=== PATIENT | male | born 1965 | race Caucasian/White ===

== ENCOUNTER 2017-01-10 19:19 | Emergency (ER) | payer OTHER, MEDICAID ==
[2017-01-10 19:42] VITALS: BP 130/73
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
--- NOTE | 2017-01-10 20:50 | RAD ---
INDICATION: Right ankle injury. TECHNIQUE: 3 views of the right ankle were obtained. FINDINGS: There is mild diffuse soft tissue swelling. The bones are in normal alignment. No acute fracture is seen. There is an old small avulsion fracture fragment arising from the dorsal talus. The patient is status post fusion of the subtalar joint. There is a single surgical screw spanning the calcaneus and talus. The joint space remains visualized. IMPRESSION: 1. SOFT TISSUE SWELLING, NO ACUTE FRACTURE IS SEEN. 2. STATUS POST FUSION OF THE SUBTALAR JOINT. THE JOINT SPACE REMAINS VISUALIZED.
--- NOTE | 2017-01-10 20:52 | RAD ---
INDICATION: Right lower leg injury. TECHNIQUE: 2 views of the right lower leg were obtained. FINDINGS: The bones are in normal alignment. No fracture is seen. Posttraumatic and post surgical changes are noted in the distal femur. The distal portion of an intramedullary gill is noted spanning a partially fused fracture of the distal femoral metaphysis. IMPRESSION: NO EVIDENCE FOR ACUTE FRACTURE.
== END 2017-01-10 21:35 | disposition home or self-care (01) ==
LOC: UCCORT 19:19
DX: S93.401A Sprain of unspecified ligament of right ankle, initial encounter (principal); X50.1XXA Overexertion from prolonged static or awkward postures, initial encounter; Y93.9 Activity, unspecified; Y92.9 Unspecified place or not applicable; E11.9 Type 2 diabetes mellitus without complications; I10 Essential (primary) hypertension; J44.9 Chronic obstructive pulmonary disease, unspecified; G43.909 Migraine, unspecified, not intractable, without status migrainosus; K21.9 Gastro-esophageal reflux disease without esophagitis; F41.9 Anxiety disorder, unspecified; Z86.711 Personal history of pulmonary embolism; F17.210 Nicotine dependence, cigarettes, uncomplicated
CPT/HCPCS: 99213; G0463

== ENCOUNTER 2017-04-07 11:29 | Emergency (ER) | payer OTHER ==
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
[2017-04-07] MEDS ORDERED: Al Hydrox/Mg Hydrox/Simet LIQ* 30 ML UDC PO ONE (11:51)
[2017-04-07] MEDS ORDERED: Lidocaine 2% VISCOUS* 15 ML UDC PO ONE (11:51)
[2017-04-07 11:55] VITALS: BP 141/63
== END 2017-04-07 12:21 | disposition left against medical advice (07) ==
LOC: UCCORT 11:29
DX: R10.13 Epigastric pain (principal); R07.89 Other chest pain; R11.2 Nausea with vomiting, unspecified; E11.9 Type 2 diabetes mellitus without complications; I10 Essential (primary) hypertension; J44.9 Chronic obstructive pulmonary disease, unspecified; F17.210 Nicotine dependence, cigarettes, uncomplicated
CPT/HCPCS: 93005; 99213; A9270-GY; G0463

== ENCOUNTER 2019-02-27 10:03 | Emergency (ER) | payer OTHER ==
[2019-02-27] MEDS ORDERED: Aspirin 81 mg CHEW TAB* 81 MG TAB.CHEW PO ONE (10:25)
[2019-02-27 10:36] VITALS: BP 156/85
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
== END 2019-02-27 10:50 | disposition short-term general hospital (02) ==
LOC: UCCORT 10:03
DX: R07.9 Chest pain, unspecified (principal); I10 Essential (primary) hypertension; I25.10 Atherosclerotic heart disease of native coronary artery without angina pectoris; J44.9 Chronic obstructive pulmonary disease, unspecified; F17.210 Nicotine dependence, cigarettes, uncomplicated; Z79.899 Other long term (current) drug therapy
CPT/HCPCS: 93005; 99214; A9270-GY; G0463

== ENCOUNTER 2019-02-28 12:44 | Observation (INO) | payer OTHER ==
--- OUTSIDE RECORDS SUMMARY | 2019-02-28 13:08 | XMS REPORT | Continuity of Care Document ---
:1965 External Reference #:[id number] Author Name Ayleen Rodriguez Care Team Providers Name Role Phone Susan Silver N.P. Primary Care Physician Unavailable Payers Date Identification Numbers Payment Provider Subscriber Policy Number: [id number] Sebastien Holcomb Group Name: [id number] [address] PayID: [id number] [place] [address] Family History Date Family Member(s) Observation Comments Mother Diabetes Mother due to CAD () Mother due to CHF () Social History Type Date Description Comments Sex Unknown Marital Status Lives With Spouse Tobacco Use Start: Unknown Heavy tobacco smoker (more than 10 cigarettes/day) Smoking Status Reviewed: 02/28/19 Heavy tobacco smoker (more than 10 cigarettes/day) ETOH Use Denies alcohol use Recreational Drug Use Denies Drug Use Tobacco Use Start: Unknown Heavy tobacco smoker (more than 10 cigarettes/day) Exercise Type/Frequency Does not exercise Allergies, Adverse Reactions, Alerts Description No Known Drug Allergies Medications Active Medications SIG Qnty Indications Ordering Date Provider Bupropion Hydrochloride 1 by mouth every day Unknown ER (XL) 300mg Tablets ER 24HR Celecoxib 1 by mouth bid Unknown 200mg Capsules Esomeprazole Magnesium 1 by mouth bid Unknown 40mg Capsules DR Fentanyl apply one patch Unknown 75mcg/HR Patches transdermally every 72HR 3 days Ferrous Sulfate 1 by mouth tid Unknown 325(65Fe) mg Tablets Gabapentin take one tablet by Unknown 600mg Tablets mouth two times daily Lisinopril 1 by mouth every day Unknown 2.5mg Tablets Metformin HCL ER (Mod) 2 po bid Unknown 500mg Tablets ER 24HR Prochlorperazine 1 po tid prn Unknown Maleate 10mg Tablets Ranitidine 300 mg at hs Unknown Simvastatin 1 by mouth every day Unknown 10mg Tablets Trazodone HCL 2 po every night at Unknown 100mg Tablets bedtime. History Medications Albuterol Sulfate 1 unit dose via Unknown - 02/27/2019 (2.5mg/3ML) nebulizer every 4 hours 0.083% Nebulizer as needed Symbicort 1 puff twice a day Unknown - 02/25/2019 160-4.5mcg/Act Aerosol Incruse Ellipta inhale one puff by Unknown - 02/27/2019 62.5mcg/Inh mouth every day Aerosol Vital Signs Date Vital Result Comment 02/28/2019 10:44am Height 71 inches 5'11" Weight 269.00 lb with shoes Heart Rate 90 /min BP Systolic Sitting 136 mmHg ule lg cuff BP Diastolic Sitting 76 mmHg ule lg cuff O2 % BldC Oximetry 95 % Ra BMI (Body Mass Index) 37.5 kg/m2 Procedures Date Code Description Status 02/28/2019 57564 EKG Tracing & Interpretation Completed Plan of Treatment 02/28/2019 - Jose Sánchez M.D.I10 Essential (primary) [id number] Hyperlipidemia, [id number] Shortness of [id number] Chest pain, unspecifiedFollow up:I strongly advised pt and to go to hospital now for further eval. I offered ambulance and he said his will drive him.Z72.0 Tobacco useE66.9 Obesity, rtaoyqxuqacE68.33 Obstructive sleep apnea (adult) (pediatric)E11.9 Type 2 diabetes mellitus without complications
[2019-02-28 13:32] LABS: ABS Basophils 0.1 10^3/ul (0-0.2); ABS Eosinophils 0.1 10^3/ul (0-0.6); ABS Lymphocytes 2.6 10^3/ul (1.0-4.8); ABS Monocytes 0.6 10^3/ul (0-0.8); ABS Neutrophils 5.3 10^3/ul (1.5-7.7); Eosinophil % 1.2 %; Hematocrit 45 % (42-52); Lymphocyte % 29.5 %; Mean Corpuscular HGB Conc 34 g/dL (31-36); Mean Corpuscular Hemoglobin 31 pg (27-31); Mean Corpuscular Volume 92 fL (80-94); Mean Platelet Volume 8.2 fL (7.4-10.4); Nucleated Red Blood Cells % 0.1; Platelet Count 217 10^3/uL (150-450); Red Blood Count 4.87 10^6 /uL (4.18-5.48); Red Cell Distribution Width 14 % (10-15); White Blood Count 8.7 10^3/uL (3.5-10.8)
[2019-02-28 13:42] LABS: INR 0.93 (0.82-1.09)
[2019-02-28 13:50] LABS: Albumin/Globulin Ratio 1.3 (1-3); BUN/Creatinine Ratio 17.8 (8-20); Calcium 9.1 mg/dL (8.6-10.3); EGFR African American 106.4 (>60); EGFR Non-African American 87.9 (>60); Globulin 3.2 g/dL (2-4); Total Bilirubin 0.2 mg/dL (0.2-1.0); Total Protein 7.2 g/dL (6.4-8.9); Troponin I 0.01 ng/mL (<0.04)
[2019-02-28 14:07] LABS: Potassium 4.6 mmol/L (3.5-5.0)
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
[2019-02-28] MEDS ORDERED: Acetaminophen TAB* 325 MG PO PRN (16:38)
[2019-02-28] MEDS ORDERED: Ondansetron INJ* 2 MG/ML VIAL IV PRN (16:38)
[2019-02-28] MEDS ORDERED: Aspirin 81 mg CHEW TAB* 81 MG TAB.CHEW PO ONE (17:02)
[2019-02-28] MEDS ORDERED: Nitro 2% OINT* (Nitroglycerin) 1 INCH/PAK PAK TOPICAL ONE (17:02)
[2019-02-28] MEDS ORDERED: Dextrose 50% Syringe 50 ML* 25 GM/50 ML SYRINGE IV PUSH PRN (17:04)
[2019-02-28] MEDS ORDERED: Albuterol 2.5 MG/3 ML NEB.SOL* (0.083%) INH PRN (17:04)
[2019-02-28] MEDS ORDERED: Prochlorperazine TAB* 10 MG PO PRN (17:05)
[2019-02-28] MEDS ORDERED: traZODone TAB* 100 MG PO PRN (17:05)
[2019-02-28] MEDS ORDERED: Nicotine* 4MG (FRUIT FLAVOR) GUM PO PRN (17:39)
[2019-02-28] MEDS ORDERED: fentaNYL PATCH 75 MCG/HR* 75 MCG TRANSDERM SCH (18:00)
[2019-02-28] MEDS: fentaNYL Patch Check Q Shift 1 NOTE FOLLOW UP SCH (18:28)
--- NOTE | 2019-02-28 18:46 | HP ---
HISTORY AND PHYSICAL: ADDENDUM: The case was reviewed and discussed with Eden Ruby NP. Mr. Holcomb is a 53-year-old male with multiple comorbidities including COPD, tobacco abuse, obesity, chronically uncontrolled type 2 diabetes, hypertension, who presented to the emergency room with nadeem hs of progressive exertional chest pain. His initial troponin is negative and his EKG shows no acute ischemic changes, but there is concern that this is high-risk chest pain, so he will be admitted for further evaluation and workup including a stress test. I am in agreement with the current management. [id number]/[facility] #: [id number]
[2019-02-28] MEDS: Insulin LISPRO* 1 UNITS UNIT SUBCUT SCH (19:20)
[2019-02-28] MEDS: Nicotine PATCH 21 MG/24 HR* PATCH TRANSDERM SCH (19:21)
[2019-02-28] MEDS: Insulin GLARGINE(*) 1 UNITS UNIT SUBCUT SCH (19:22)
[2019-02-28] MEDS: Famotidine TAB* 20 MG PO SCH (19:22)
[2019-02-28] MEDS: Gabapentin CAP(*) 300 MG PO SCH (19:23)
[2019-02-28] MEDS: Ferrous Sulfate TAB* 325 MG PO SCH (19:23)
[2019-02-28] MEDS: Pantoprazole TAB * 40 MG TAB PO SCH (19:24)
--- NOTE | 2019-02-28 20:08 | HP ---
CC: Susan Silver NP * MEDICINE HISTORY AND PHYSICAL: DATE OF ADMISSION: 02/28/19 PROVIDER: Corey Landon NP ATTENDING PHYSICIAN: María Montemayor MD * (dictated by Corey Landon NP) PRIMARY CARE PROVIDER: Susan Silver NP OUTPATIENT AUTOMATIC LATHE OPERATOR: Dr. Sánchez. CHIEF COMPLAINT: Chest pain. HISTORY OF PRESENT ILLNESS: Mr. Holcomb is a 53-year-old male who was sent to the ER today by Dr. Sánchez. The patient was seen by Dr. Sánchez for his initial cardiology consult after reporting chest pain that has been occurring intermittently for the past couple of months. On morning, Mr. Holcomb complained of chest pain and his , Mallory, who has accompanied the patient, states that she made him go to the [facility] for further evaluation at this point. He was seen at [facility] and then referred to the ER. He was then transferred to [facility] where he was seen and evaluated for his left-sided chest pain. Per the patient, he was discharged. Per his , they had wanted to admit him for a stress test, but the patient declined at that time. This morning, he awoke; he states that he did have some chest pain at rest, but did not tell anyone. He went to his cardiology appointment and at the cardiology appointment with presentation of his symptoms, he was referred to the [facility] for further evaluation and admission for stress test due to the high risk symptoms he has. Mr. Holcomb reports that it currently feels like someone is sitting on his chest. He reports heaviness in the left side that occurs both at rest and with exertion. It worsens with exertion. He also reports some right arm pain, particularly in the right shoulder. Aggravating factors are exertion. Pain does improve with rest, but does not completely go away. He reports associated symptoms of headache, diaphoresis, which actually have improved. He has chronic nausea at baseline. This has not worsened. Per his , his EKG at his PCP's office also showed an irregular rhythm. Mr. Holcomb also states that he has type 2 diabetes that is not well controlled. He states he does check his blood sugars at home and they usually range in the 200s or higher. His blood sugar was 327 today. He states this has been ongoing for the past couple of months, and his PCP recently increased his metformin to 1000 mg twice a day. He feels this has been insufficient. He also reports a history of tobacco use and COPD. He does not utilize any inhalers. He has also been diagnosed previously with obstructive sleep apnea but states that he did not tolerate the CPAP machine and does not feel he needs oxygen at nighttime because his "breathing is fine." In the ER, Mr. Holcomb has had troponins drawn with his first troponin being 0.01 and next troponin is 0.00. EKG was done upon arrival and it showed normal sinus rhythm, no significant ST or T wave inversions to indicate ischemic changes. However, given his symptoms, Dr. Sánchez was consulted via the phone and he had recommended the patient be admitted for cardiac workup, which includes stress test. Mr. Holcomb is in agreement with this plan. PAST MEDICAL HISTORY: Includes: 1. COPD. 2. Type 2 diabetes, on metformin. 3. Hypertension. 4. Hyperlipidemia. 5. Obstructive sleep apnea, not on CPAP or home oxygen. 6. Anemia. 7. Depression. 8. Anxiety. 9. Chronic back pain. 10. BPH. 11. GERD. MEDICATIONS: Home medications: 1. Gabapentin 300 mg b.i.d. 2. Trazodone 200 mg at bedtime p.r.n. 3. Metformin 1000 mg b.i.d. 4. Simvastatin 10 mg daily. 5. Ranitidine 300 mg at bedtime. 6. Prochlorperazine 10 mg t.i.d. p.r.n. 7. Lisinopril 2.5 mg daily. 8. Fentanyl patch 75 mcg q.72 hours. 9. Ferrous sulfate 325 mg t.i.d. 10. Celecoxib 200 mg b.i.d. 11. Esomeprazole 40 mg b.i.d. ALLERGIES: No known allergies. FAMILY HISTORY: He reports a father who of small cell lung cancer. His mother is ; she had a history of coronary artery disease, diabetes, and congestive heart failure. SOCIAL HISTORY: Mr. Holcomb is a current every day smoker. He has been smoking for 33 years and smokes approximately 1 pack per day. He denies alcohol or illicit drug use. He is not currently working due to his chronic pain. He is . His , Mallory, is his surrogate decision maker in the event of emergency. His son, Irving, would be his secondary contact. REVIEW OF SYSTEMS: A 12-point review of systems was completed. All pertinent positives and negatives as per HPI, all those not mentioned are negative. PHYSICAL EXAMINATION GENERAL: This is a middle-aged male, seen lying in the ED stretcher, in no acute distress. VITAL SIGNS: Temperature 97.3, heart rate 92, respiratory rate 20, blood pressure 127/85, and O2 saturation is 98% on room air. HEENT: Head is atraumatic, normocephalic. Face is symmetric. Pupils are equal , round and reactive to light and accommodation. Extraocular movements are intact. Oral mucosa is moist. No oropharyngeal erythema or exudate. NECK: Supple with full range of motion. No JVD noted. No carotid bruits auscultated. No lymphadenopathy appreciated. LUNGS: Clear to auscultation, but diminished throughout. I do hear scattered expiratory wheezes with prolonged expiratory phase. CARDIAC: Normal S1, S2. Heart sounds with regular rate and rhythm. No murmurs appreciated. Peripheral pulses are present in the upper and lower extremities. No peripheral edema noted. ABDOMEN: Soft, nontender, somewhat protuberant. Bowel sounds are present in all 4 quadrants. MUSCULOSKELETAL: There is no clubbing or cyanosis. Full range of motion is noted in all 4 extremities. NEURO: He is alert and oriented x3. Cranial nerves II through XII are grossly intact. Sensation is intact to light touch to the lower extremities. Speech is fluent. He is able to make needs known. PSYCHIATRIC: Affect is appropriate. SKIN: Appears grossly intact. It is warm and dry. Evidence of old healed incisions to the lower back and to the right lower leg. DIAGNOSTIC STUDIES/LAB DATA: CBC, WBC 8.7, hemoglobin 15.0, hematocrit 45, platelet count 217. INR 0.93. CMP, sodium 137, potassium 4.6, chloride 102, carbon dioxide 27, BUN 15, creatinine 0.90, glucose 332. Calcium 9.1. Total bilirubin 0.2, AST 24, ALT 34, alk phos 118. Troponin 0.01 at 1307 and 0.00 at 1553. Albumin 4.0. Chest x-ray was done. It shows hyperinflation of the lungs, but no evidence for acute or active cardiopulmonary disease. EKG as per above. Old medical records were reviewed. ASSESSMENT AND PLAN: This is a 53-year-old male here today with concern for chest pain with multiple comorbidities and was concerned for escalation of symptoms to even being present at rest. He will be admitted as an inpatient with a plan for stress test on Sunday. 1. Chest pain. Rule out acute coronary syndrome. Mr. Holcomb will be admitted to [address] [place] [address] and will be monitored on the unit. He will have repeat EKGs. We will also obtain a fasting lipid profile and add on a hemoglobin A1c. He is currently with chest pain and he has been started on nitro ointment to the chest. I have also given him aspirin. He is already on JANY inhibitor. We will hold on starting the beta-alfie at this time. This may also be warranted. We discussed his risk factors including tobacco use, uncontrolled diabetes, and sleep apnea. His IAM score is 2 scoring for risk factors and 2 cardiac episodes of angina. At this point in time, we will continue plan as outlined per above and adjust as needed per the patient's presentation and symptoms. 2. Type 2 diabetes. Mr. Holcomb appears to be uncontrolled, diabetic, only on metformin and likely needs additional medications. He may benefit from additional medications such as sitagliptin. He is hoping to see Dr. Medel as an outpatient and since he will be here until Sunday, it may be possible to get a diabetes consult as an inpatient or receive recommendations from Dr. Medel prior to the patient's discharge. We will see the possibility of this on Sunday prior to the patient's discharge. In the interim, we will hold his metformin while he is inpatient and start him on lispro sliding scale insulin and start him also on Lantus, which he may need to go home on and we will start low-dose 10 units q.24 hours. Hemoglobin A1c has been added on to his labs in the ER and is pending. 3. Hypertension. Blood pressures have been rather labile. We will continue him on his home lisinopril 2.5 mg. This may need to be titrated upward. He may also benefit from the addition of a beta-alfie, but we will hold on this for now given that he has a stress test coming up. 4. Hyperlipidemia. He is on low-dose simvastatin. We will add fasting lipid profile to be drawn tomorrow. 5. Obstructive sleep apnea. He is not compliant with CPAP and oxygen. He apparently does have oxygen at home. We will obtain an overnight pulse oximetry to evaluate the extent of his hypoxia at nighttime to see if he would still benefit from a treatment modality at nighttime. Education was provided on the importance of treating sleep apnea and how it relates to cardiac condition and the overall health. 6. Chronic obstructive pulmonary disease. He may have been on inhalers at one point, but he states he no longer takes any inhalers; he does not need them. Again, he does have some scant expiratory wheezing. He is ordered p.r.n. albuterol if this should be needed. 7. Nicotine dependence. He is ordered for nicotine replacement. I did advise the patient to stop smoking and approximately 3 to 10 minutes were spent in counseling the patient on his tobacco use and the importance of cessation. 8. Depression and anxiety. The patient reports this is well controlled. He no longer takes medications for this. He was previously on Wellbutrin, but states he does not take this. 9. Chronic pain. He does follow with Dr. Brian here at the [facility]. He has a dorsal column stimulator as well as a fentanyl patch. He is also on celecoxib, which we will hold in the presence of acute chest pain and hypertension. We will continue him on his gabapentin. We will also continue his fentanyl patch. 10. History of GERD. Continue current regimen, which includes ranitidine and esomeprazole. 11. History of anemia. Continue ferrous sulfate. CBC is within normal limits. 12. FEN. He is ordered consistent carbohydrate diabetic diet, no caffeine. 13. Code status. He is a full code. 14. DVT prophylaxis. He is ordered subcu heparin. 15. Disposition. Anticipate discharge to home when medically stable. TIME SPENT: Approximately 65 minutes were spent on this admission, which includes obtaining history and physical, performing the physical examination, and reviewing the plan of care. Plan of care was also reviewed with my attending , Dr. Montemayor, who is in agreement. COREY LANDON NP [id number]/[facility] #: [id number] [place]
[2019-02-28] MEDS: Heparin VIAL(*) 5000 UNITS/ML VIAL (FIVE THOUSAND) SUBCUT SCH (22:19)
[2019-03-01] MEDS ORDERED: Ketorolac INJ* 15 MG/ML 1 ML VIAL IV PUSH ONE (00:20)
[2019-03-01] MEDS: Heparin VIAL(*) 5000 UNITS/ML VIAL (FIVE THOUSAND) SUBCUT SCH ×3 (05:21→21:35)
[2019-03-01] MEDS: Nicotine Patch Removal NOTE FOLLOW UP SCH (05:22)
[2019-03-01 07:01] LABS: HDL Cholesterol 27.9 mg/dL
[2019-03-01] MEDS: fentaNYL Patch Check Q Shift 1 NOTE FOLLOW UP SCH ×2 (07:48→19:52)
[2019-03-01] MEDS: Ferrous Sulfate TAB* 325 MG PO SCH ×3 (07:52→19:55)
[2019-03-01] MEDS: Nicotine PATCH 21 MG/24 HR* PATCH TRANSDERM SCH (07:52)
[2019-03-01] MEDS: Insulin LISPRO* 1 UNITS UNIT SUBCUT SCH ×3 (07:54→17:17)
[2019-03-01] MEDS: Pantoprazole TAB * 40 MG TAB PO SCH ×2 (07:55→19:56)
[2019-03-01] MEDS: Lisinopril TAB* 5 MG PO SCH (07:55)
[2019-03-01] MEDS: Aspirin 81 mg CHEW TAB* 81 MG TAB.CHEW PO SCH (07:55)
[2019-03-01] MEDS: Gabapentin CAP(*) 300 MG PO SCH ×2 (07:55→19:55)
[2019-03-01] MEDS ORDERED: CMCS:Simvastatin TAB(NF) 10 MG TAB PO SCH (09:00)
[2019-03-01] MEDS: Metoprolol Tartrate TAB* 25 MG PO SCH ×3 (11:02→22:14)
[2019-03-01] MEDS: Nitro 2% OINT* (Nitroglycerin) 1 INCH/PAK PAK TOPICAL SCH (12:38)
--- NOTE | 2019-03-01 12:52 | PN ---
Subjective Date of Service: 03/01/19 Interval History: chest pressure 2/10 currently, 5/10 at worst. for 2 months, worse with exertion 4 pillow orthopnea for ~6months, at same time Abdomen has felt more bloated and distended. sharp stabbing pain down right arm into hand for 1 month. this is why he says he sought (or forced) seek evaluation. Wants to establish with new PCP. Says he has not interest in quitting smoking. His also smokes. Objective Active Medications: Acetaminophen (Tylenol Tab*) 650 mg PO Q4H PRN PRN Reason: FEVER/PAIN Albuterol (Ventolin 2.5 Mg/3 Ml Neb.Jennie*) 2.5 mg INH Q4H PRN PRN Reason: SOB/WHEEZING Last Admin: 03/01/19 00:21 Dose: 2.5 mg Aspirin (Aspirin 81 Mg Chew Tab*) 81 mg PO DAILY [facility] Last Admin: 03/01/19 07:55 Dose: 81 mg Atorvastatin Calcium (Lipitor*) 80 mg PO 1700 [facility] Dextrose (D50w Syringe 50 Ml*) 12.5 gm IV PUSH .FOR FS < 60 - SS PRN PRN Reason: FS < 60 Famotidine (Pepcid Tab*) 40 mg PO BEDTIME [facility]; Protocol Last Admin: 02/28/19 19:22 Dose: 40 mg Fentanyl (Duragesic Patch 75 Mcg/Hr*) 75 mcg TRANSDERM Q72H [facility] Last Admin: 02/28/19 17:51 Dose: Not Given Ferrous Sulfate (Ferrous Sulfate Tab*) 325 mg PO TID [facility] Last Admin: 03/01/19 12:41 Dose: 325 mg Gabapentin (Neurontin Cap(*)) 300 mg PO BID [facility] Last Admin: 03/01/19 07:55 Dose: 300 mg Heparin Sodium (Porcine) (Heparin Vial(*)) 5,000 units SUBCUT Q8HR [facility] Last Admin: 03/01/19 05:21 Dose: 5,000 units Insulin Glargine (Lantus(*)) 10 units SUBCUT Q24H [facility] Last Admin: 02/28/19 19:22 Dose: 10 unit Insulin Human Lispro (Humalog*) 0 units SUBCUT AC [facility]; Protocol Last Admin: 03/01/19 12:42 Dose: 12 unit Lisinopril (Prinivil Tab*) 2.5 mg PO DAILY [facility] Last Admin: 03/01/19 07:55 Dose: 2.5 mg Metoprolol Tartrate (Lopressor Tab*) 25 mg PO Q6H [facility] Last Admin: 03/01/19 11:02 Dose: 25 mg Nicotine (Nicotine Patch 21 Mg/24 Hr*) 1 patch TRANSDERM DAILY@0800 [facility] Last Admin: 03/01/19 07:52 Dose: 1 patch Nicotine Polacrilex (Nicotine Gum*) 4 mg PO Q2H PRN PRN Reason: CRAVING Nitroglycerin (Nitroglycerin 2% Oint*) 1 inch TOPICAL 0600,1200 [facility]; Protocol Last Admin: 03/01/19 12:38 Dose: 1 inch Ondansetron HCl (Zofran Inj*) 4 mg IV Q6H PRN PRN Reason: NAUSEA/VOMITING Pantoprazole Sodium (Protonix Tab*) 40 mg PO BID [facility]; Protocol Last Admin: 03/01/19 07:55 Dose: 40 mg Pharmacy Profile Note (Fentanyl Patch Check Q Shift) 1 note FOLLOW UP 0700, 1900 [facility] Last Admin: 03/01/19 07:48 Dose: 1 note Pharmacy Profile Note (Nicotine Patch Removal Note*) 1 note FOLLOW UP 0600 [facility] Last Admin: 03/01/19 05:22 Dose: 1 note Prochlorperazine (Compazine Tab*) 10 mg PO TID PRN PRN Reason: NAUSEA/VOMITING Trazodone HCl (Desyrel Tab*) 200 mg PO BEDTIME PRN PRN Reason: INSOMNIA Vital Signs - 8 hr 03/01/19 03/01/19 03/01/19 06:05 07:35 07:55 Temperature 97.5 F Pulse Rate 69 Respiratory 20 18 Rate Blood Pressure 148/78 (mmHg) O2 Sat by Pulse 92 95 Oximetry 03/01/19 03/01/19 03/01/19 09:19 09:59 11:20 Temperature 97.6 F Pulse Rate 71 Respiratory 16 16 20 Rate Blood Pressure 132/77 (mmHg) O2 Sat by Pulse 95 Oximetry Oxygen Devices in Use Now: None Appearance: NAD, sitting on side of hospital bed. Eyes: No Scleral Icterus Ears/Nose/Mouth/Throat: NL Teeth, Lips, Gums Neck: NL Appearance and Movements; NL JVP Respiratory: Symmetrical Chest Expansion and Respiratory Effort, Clear to Auscultation Cardiovascular: NL Sounds; No Murmurs; No JVD, RRR Abdominal: NL Sounds; No Tenderness; No Distention, - - obese Extremities: No Edema Skin: No Rash or Ulcers Neurological: Alert and Oriented x 3 Nutrition: Taking PO's Result Diagrams: 02/28/19 13:07 02/28/19 13:07 Additional Lab and Data: Laboratory Results - last 24 hr 02/28/19 03/01/19 03/01/19 13:07 06:05 07:29 POC Glucose (mg/dL) 147 H Glucose Meter Confirm B-Natriuretic Peptide 20 Triglycerides 355 Cholesterol 137 LDL Cholesterol 38 HDL Cholesterol 27.9 03/01/19 03/01/19 03/01/19 11:55 16:24 20:01 POC Glucose (mg/dL) 170 H 196 H Glucose Meter Confirm 310 H B-Natriuretic Peptide Triglycerides Cholesterol LDL Cholesterol HDL Cholesterol Assess/Plan/Problems-Billing Assessment: 53 yo male [facility] current smoker, NIDDM (poorly controlled), obesity, CHAYA, chronic back pain (on 75mcg fentanyl, dorsal column stimulator) presenting with 3 months of DUFF, chest and 1 month of stabbing pain in right arm. Needing stress test - Patient Problems (1) Chest pain Current Visit: Yes Status: Acute Code(s): R07.9 - CHEST PAIN, UNSPECIFIED SNOMED Code(s): 45115029 Comment: Referred by Dr. Oliver. Needing stress teat on 03/03. Troponins negative, no ischemic changes on EKG add beta-alfie metoprolol 25mg q6. change to atorvastatin 80mg. add back nitro paste. telemetry. ECHO. (2) Diabetes mellitus type 2 in obese Current Visit: Yes Status: Acute Code(s): E11.69 - TYPE 2 DIABETES MELLITUS WITH OTHER SPECIFIED COMPLICATION; E66.9 - OBESITY, UNSPECIFIED SNOMED Code(s) : 84471269 Comment: BS as high as 300 again today. Increase lantus from 10U pm to 10U BID for quicker titration. [facility] qachs. Dr. Medel was consulted by admitting providers. at home was on metformin 850 BID. (3) Hypertension Current Visit: Yes Status: Acute Code(s): I10 - ESSENTIAL (PRIMARY) HYPERTENSION SNOMED Code(s): 81434126 Comment: continue home lisinopril 2.5mg, add BB (4) Chronic back pain Current Visit: Yes Status: Acute Code(s): M54.9 - DORSALGIA, UNSPECIFIED; G89.29 - OTHER CHRONIC PAIN SNOMED Code(s): 554610111 Comment: is on fentanyl patch 75mcg and with dorsal column stimultor. (5) Right arm pain Current Visit: Yes Status: Acute Code(s): M79.601 - PAIN IN RIGHT ARM SNOMED Code(s): 116510043 Comment: stabbing pain, atypical if aginal equivalent. add b12 (6) Current smoker Current Visit: Yes Status: Acute Code(s): F17.200 - NICOTINE DEPENDENCE, UNSPECIFIED, UNCOMPLICATED SNOMED Code(s): 61690063 Comment: nicotine patch here. continues to have no desire to quit. (7) DVT prophylaxis Current Visit: Yes Status: Acute Code(s): Z29.9 - ENCOUNTER FOR PROPHYLACTIC MEASURES, UNSPECIFIED SNOMED Code(s): 963102098 Comment: heparin 5000 TID Status and Disposition: medicine inpatient, needing stress test
[2019-03-01] MEDS: Atorvastatin* 80 MG TAB PO SCH (17:17)
[2019-03-01] MEDS: Famotidine TAB* 20 MG PO SCH (19:54)
[2019-03-01] MEDS: Insulin GLARGINE(*) 1 UNITS UNIT SUBCUT SCH (21:34)
[2019-03-02 05:38] LABS: BUN/Creatinine Ratio 18.4 (8-20); Calcium 8.8 mg/dL (8.6-10.3); EGFR African American 96.4 (>60); EGFR Non-African American 79.7 (>60); Potassium 4.2 mmol/L (3.5-5.0)
[2019-03-02] MEDS: Metoprolol Tartrate TAB* 25 MG PO SCH ×2 (06:21→10:52)
[2019-03-02] MEDS: Heparin VIAL(*) 5000 UNITS/ML VIAL (FIVE THOUSAND) SUBCUT SCH ×3 (06:21→20:01)
[2019-03-02] MEDS: Nicotine Patch Removal NOTE FOLLOW UP SCH (06:22)
[2019-03-02] MEDS: Nitro 2% OINT* (Nitroglycerin) 1 INCH/PAK PAK TOPICAL SCH ×2 (06:41→13:41)
[2019-03-02] MEDS: fentaNYL Patch Check Q Shift 1 NOTE FOLLOW UP SCH ×2 (06:55→19:18)
[2019-03-02] MEDS: Insulin LISPRO* 1 UNITS UNIT SUBCUT SCH ×3 (10:43→17:19)
[2019-03-02] MEDS: Lisinopril TAB* 5 MG PO SCH (10:50)
[2019-03-02] MEDS: Ferrous Sulfate TAB* 325 MG PO SCH ×3 (10:51→20:00)
[2019-03-02] MEDS: Gabapentin CAP(*) 300 MG PO SCH ×2 (10:52→20:00)
[2019-03-02] MEDS: Pantoprazole TAB * 40 MG TAB PO SCH ×2 (10:52→20:00)
[2019-03-02] MEDS: Insulin GLARGINE(*) 1 UNITS UNIT SUBCUT SCH ×2 (10:52→21:39)
[2019-03-02] MEDS: Aspirin 81 mg CHEW TAB* 81 MG TAB.CHEW PO SCH (10:52)
[2019-03-02] MEDS: Nicotine PATCH 21 MG/24 HR* PATCH TRANSDERM SCH (10:53)
--- NOTE | 2019-03-02 12:02 | PN ---
Subjective Date of Service: 03/02/19 Interval History: No acute events overnight, afebrile. NSR on tele His chest pain and stabbing right arm pain have resolved. Yesterday he noticed a grabbing discomfort and out-pouching in his ventral abdomen. Had never noticed before. no f/c/n/v/d/c. His sleep study was about 4 years ago. Does not sleep well at home. Did not tolerate CPAP previously. PFTs and outpatient pulmonary evaluation was with "Dr. Plummer or Arley " circa April 2018 in [place]. Likely [facility]ibay. Objective Active Medications: Acetaminophen (Tylenol Tab*) 650 mg PO Q4H PRN PRN Reason: FEVER/PAIN Albuterol (Ventolin 2.5 Mg/3 Ml Neb.Jennie*) 2.5 mg INH Q4H PRN PRN Reason: SOB/WHEEZING Last Admin: 03/01/19 00:21 Dose: 2.5 mg Aspirin (Aspirin 81 Mg Chew Tab*) 81 mg PO DAILY [facility] Last Admin: 03/02/19 10:52 Dose: 81 mg Atorvastatin Calcium (Lipitor*) 80 mg PO 1700 [facility] Last Admin: 03/01/19 17:17 Dose: 80 mg Dextrose (D50w Syringe 50 Ml*) 12.5 gm IV PUSH .FOR FS < 60 - SS PRN PRN Reason: FS < 60 Famotidine (Pepcid Tab*) 40 mg PO BEDTIME [facility]; Protocol Last Admin: 03/01/19 19:54 Dose: 40 mg Fentanyl (Duragesic Patch 75 Mcg/Hr*) 75 mcg TRANSDERM Q72H [facility] Last Admin: 02/28/19 17:51 Dose: Not Given Ferrous Sulfate (Ferrous Sulfate Tab*) 325 mg PO TID [facility] Last Admin: 03/02/19 10:51 Dose: 325 mg Gabapentin (Neurontin Cap(*)) 300 mg PO BID [facility] Last Admin: 03/02/19 10:52 Dose: 300 mg Heparin Sodium (Porcine) (Heparin Vial(*)) 5,000 units SUBCUT Q8HR [facility] Last Admin: 03/02/19 06:21 Dose: 5,000 units Insulin Glargine (Lantus(*)) 10 units SUBCUT Q12H [facility] Last Admin: 03/02/19 10:52 Dose: 10 units Insulin Human Lispro (Humalog*) 0 units SUBCUT [facility]; Protocol Last Admin: 03/02/19 10:43 Dose: Not Given Lisinopril (Prinivil Tab*) 2.5 mg PO DAILY [facility] Last Admin: 03/02/19 10:50 Dose: 2.5 mg Metoprolol Tartrate (Lopressor Tab*) 25 mg PO Q6H [facility] Last Admin: 03/02/19 10:52 Dose: 25 mg Nicotine (Nicotine Patch 21 Mg/24 Hr*) 1 patch TRANSDERM DAILY@0800 [facility] Last Admin: 03/02/19 10:53 Dose: 1 patch Nicotine Polacrilex (Nicotine Gum*) 4 mg PO Q2H PRN PRN Reason: CRAVING Nitroglycerin (Nitroglycerin 2% Oint*) 1 inch TOPICAL 0600,1200 [facility]; Protocol Last Admin: 03/02/19 06:41 Dose: 1 inch Ondansetron HCl (Zofran Inj*) 4 mg IV Q6H PRN PRN Reason: NAUSEA/VOMITING Pantoprazole Sodium (Protonix Tab*) 40 mg PO BID [facility]; Protocol Last Admin: 03/02/19 10:52 Dose: 40 mg Pharmacy Profile Note (Fentanyl Patch Check Q Shift) 1 note FOLLOW UP 0700, 1900 [facility] Last Admin: 03/02/19 06:55 Dose: 1 note Pharmacy Profile Note (Nicotine Patch Removal Note*) 1 note FOLLOW UP 0600 [facility] Last Admin: 03/02/19 06:22 Dose: 1 note Prochlorperazine (Compazine Tab*) 10 mg PO TID PRN PRN Reason: NAUSEA/VOMITING Trazodone HCl (Desyrel Tab*) 200 mg PO BEDTIME PRN PRN Reason: INSOMNIA Vital Signs - 8 hr 03/02/19 03/02/19 07:18 10:52 Temperature 97.7 F Pulse Rate 66 Respiratory 16 16 Rate Blood Pressure 141/73 (mmHg) O2 Sat by Pulse 96 Oximetry Oxygen Devices in Use Now: None Appearance: NAD Eyes: No Scleral Icterus Ears/Nose/Mouth/Throat: NL Teeth, Lips, Gums Neck: NL Appearance and Movements; NL JVP Respiratory: Symmetrical Chest Expansion and Respiratory Effort, - - referred upper airway obstruction wheeze Cardiovascular: NL Sounds; No Murmurs; No JVD, RRR Abdominal: - - soft, nontender, obese with ventral hernia. Extremities: No Edema Skin: No Rash or Ulcers, No Nodules or Sclerosis Neurological: Alert and Oriented x 3, NL Muscle Strength and Tone Nutrition: Taking PO's Result Diagrams: 02/28/19 13:07 03/02/19 04:58 Additional Lab and Data: Laboratory Results - last 24 hr 02/28/19 03/01/19 03/01/19 13:07 11:55 16:24 Sodium Potassium Chloride Carbon Dioxide Anion Gap BUN Creatinine Est GFR ( Amer) Est GFR (Non-Af Amer) BUN/Creatinine Ratio Glucose POC Glucose (mg/dL) 170 H Glucose Meter Confirm 310 H Calcium B-Natriuretic Peptide 20 03/01/19 03/02/19 03/02/19 20:01 04:58 07:42 Sodium 137 Potassium 4.2 Chloride 103 Carbon Dioxide 27 Anion Gap 7 BUN 18 Creatinine 0.98 Est GFR ( Amer) 96.4 Est GFR (Non-Af Amer) 79.7 BUN/Creatinine Ratio 18.4 Glucose 190 H POC Glucose (mg/dL) 196 H 120 H Glucose Meter Confirm Calcium 8.8 B-Natriuretic Peptide Assess/Plan/Problems-Billing Assessment: 53 yo male [facility] current smoker, NIDDM (poorly controlled), obesity, CHAYA, chronic back pain (on 75mcg fentanyl, dorsal column stimulator) presenting with 3 months of DUFF, chest pain and 1 month of stabbing pain in right arm. Needing stress test (referred by Dr. Sánchez) - Patient Problems (1) Chest pain Current Visit: Yes Status: Acute Code(s): R07.9 - CHEST PAIN, UNSPECIFIED SNOMED Code(s): 02796947 Comment: Referred by Dr. Oliver. Needing stress test on 03/03. Troponins negative, no ischemic changes on EKG. continue beta-alfie but change metoprolol tartrate 25mg q6 to metoprolol succinate 50mg daily. continue atorvastatin 80mg (from simvastatin home 10mg) will trial off nitro paste telemetry. NSR ECHO (unfortunately did not make the cut for today) (2) Diabetes mellitus type 2 in obese Current Visit: Yes Status: Acute Code(s): E11.69 - TYPE 2 DIABETES MELLITUS WITH OTHER SPECIFIED COMPLICATION; E66.9 - OBESITY, UNSPECIFIED SNOMED Code(s) : 54993881 Comment: BSs 120-190s Continue Lantus 10U BID for now for quicker titration. [facility] qachs. Dr. Medel was consulted by admitting providers. at home was on metformin 1000 BID. A1C 9.4 (3) Hypertension Current Visit: Yes Status: Acute Code(s): I10 - ESSENTIAL (PRIMARY) HYPERTENSION SNOMED Code(s): 93255034 Comment: continue home lisinopril 2.5mg change BB to metoprolol succinate 50mg daily (4) Chronic back pain Current Visit: Yes Status: Acute Code(s): M54.9 - DORSALGIA, UNSPECIFIED; G89.29 - OTHER CHRONIC PAIN SNOMED Code(s): 092758438 Comment: is on fentanyl patch 75mcg and with dorsal column stimultor. (5) Right arm pain Current Visit: Yes Status: Acute Code(s): M79.601 - PAIN IN RIGHT ARM SNOMED Code(s): 929857420 Comment: stabbing pain, atypical if aginal equivalent. resolved f/u b12 (6) Current smoker Current Visit: Yes Status: Acute Code(s): F17.200 - NICOTINE DEPENDENCE, UNSPECIFIED, UNCOMPLICATED SNOMED Code(s): 66266755 Comment: nicotine patch here. continues to have no desire to quit. (7) DVT prophylaxis Current Visit: Yes Status: Acute Code(s): Z29.9 - ENCOUNTER FOR PROPHYLACTIC MEASURES, UNSPECIFIED SNOMED Code(s): 943203042 Comment: heparin 5000 TID (8) Ventral hernia without obstruction or gangrene Current Visit: Yes Status: Acute Code(s): K43.9 - VENTRAL HERNIA WITHOUT OBSTRUCTION OR GANGRENE SNOMED Code(s): 080694063 Comment: f/u as outpatient. no e/o of incarceration Status and Disposition: medicine inpatient, needing stress test 03/03 then wants NEW PCP.
[2019-03-02] MEDS ORDERED: Metoprolol Succinate XL TAB* 50 MG PO SCH (17:00)
[2019-03-02] MEDS: Atorvastatin* 80 MG TAB PO SCH (17:27)
[2019-03-02] MEDS: Famotidine TAB* 20 MG PO SCH (20:00)
[2019-03-03] MEDS: Nicotine Patch Removal NOTE FOLLOW UP SCH (05:29)
[2019-03-03] MEDS: Heparin VIAL(*) 5000 UNITS/ML VIAL (FIVE THOUSAND) SUBCUT SCH (05:29)
[2019-03-03] MEDS: fentaNYL Patch Check Q Shift 1 NOTE FOLLOW UP SCH (07:11)
[2019-03-03 08:55] VITALS: BP 132/62
--- NOTE | 2019-03-03 10:17 | ECHO ---
*[facility]* [place] [address] Fax #: [phone] Transthoracic Echocardiogram Patient: Zhang, Height: 71 in / Shun Stewart 180.3 cm : 1965 Weight: 269.4 lb / Study Date: 03/03/2019 122.5 kg Age: 53 BP: 152 / 94 Gender: M BMI/BSA: 37.7 kg/m^2 HR: 55 bpm / 2.4 m^2 *Bulwark Carpenter: * Thania Morris RUST *Referring Physician: * Ian Unger *Reading Physician: * Guerrero Howard MD Indications: Chest Pain, unspecified. SOB. History: Chronic obstructive pulmonary disease. Risk factors: Current tobacco use. Hypertension. Diabetes mellitus. Obese. Conclusions Summary: 1. Left ventricle: There is mild concentric hypertrophy. Systolic function is normal. The estimated ejection fraction is 55-60%. Wall motion is normal; there are no regional wall motion abnormalities. 2. Mitral valve: There is trace regurgitation. 3. Aortic valve: There is trace regurgitation. 4. Tricuspid valve: There is physiologic regurgitation. 5. Pericardium, extracardiac: There is no significant pericardial effusion. Study data: Transthoracic echocardiogram. Procedure: Transthoracic echocardiography was performed. Image quality was fair. Complete 2D, spectral Doppler, and color flow Doppler. Location: Bedside. Patient status: Inpatient. Patient room number: 453. Rhythm: Bradycardia. Findings Left ventricle: The cavity size is at the upper limits of normal. There is mild concentric hypertrophy. Systolic function is normal. The estimated ejection fraction is 55-60%. Wall motion is normal; there are no regional wall motion abnormalities. Doppler parameters are consistent with abnormal left ventricular relaxation (grade 1 diastolic dysfunction). Right ventricle: The cavity size is moderately dilated. The moderator band is in a normal position. Systolic function is low normal. Systolic pressure cannot be accurately determined, but appears to be increased. Left atrium: The atrium is normal in size. Right atrium: The atrium is mildly dilated. Mitral valve: The leaflets are mildly thickened. There is no evidence of stenosis. There is trace regurgitation. Aortic valve: The valve is trileaflet. The leaflets are mildly thickened. There is no evidence of stenosis. There is trace regurgitation. Tricuspid valve: The leaflets are normal thickness. There is no evidence of stenosis. There is physiologic regurgitation. Pulmonic valve: The leaflets are normal thickness. There is no evidence of stenosis. There is trivial regurgitation. Aorta: Ascending aorta: The ascending aorta is appears normal. Aortic arch: The aortic arch is poorly visualized. The aortic root is not dilated. Pericardium: A prominent pericardial fat pad is present. There is no significant pericardial effusion. Pulmonary arteries: The main pulmonary artery is normal-sized. Systolic pressure cannot be accurately determined, but appears to be increased. Systemic veins: Not visualized. Measurements Left ventricle Value Ref Right atrium Value Ref NO, LAX 5.8 cm 4.2 - 5.8 SI dim, ES (H) 5.4 cm 3.4 - 5.3 ESD, LAX (H) 4.3 cm 2.5 - 4.0 ML dim, ES, A4C 4.4 cm 2.6 - 4.4 FS, LAX 26 % 25 - 43 SI dim, ES, A4C (H) 5.4 cm 3.4 - 5.3 PW, ED, LAX (H) 1.2 cm 0.6 - 1.0 Estimated RAP 8 mm Hg --------- FS 26 % 25 - 43 PW, ED (H) 1.2 cm 0.6 - 1.0 Aortic valve Value Ref E', lat javi, TDI (L) 7.4 cm/sec >=10.0 Javi diam, ED 2.0 cm ---- ----- E/e', lat javi, 8 Peak v, S 1.29 m/sec ------- -- TDI VTI, S 23.2 cm --------- E', med javi, TDI 7.0 cm/sec >=7.0 Mean grad, S 3.0 mm Hg ---- ----- E/e', med javi, 9 Peak grad, S 7.0 mm Hg ------- -- TDI LVOT/AV, VTI ratio 0.82 --------- E', avg, TDI 7.2 cm/sec AMADA, VTI 2.57 cm^2 ------- -- E/e', avg, TDI 9 <=14 AMADA, Vmax 2.58 cm^2 ---- ----- LVOT Value Ref Mitral valve Value Ref Diam, S 2.00 cm Peak E 0.63 m/sec --------- Area 3.1 cm^2 Peak A 0.74 m/sec --------- Peak radha, S 1.06 m/sec Decel time 204 ms --------- VTI, S 19.0 cm Peak E/A ratio 0.8 --------- Mean grad, S 2 mm Hg SV 60 ml Pulmonic valve Value Ref SV/bsa 25 ml/m^2 Peak v, S 1.19 m/sec --------- Peak grad, S 6.0 mm Hg --------- Ventricular septum Value Ref IVS, ED (H) 1.1 cm 0.6 - 1.0 Aortic root Value Ref Root diam 3.5 cm <4.4 Right ventricle Value Ref NO, LAX 3.5 cm Ascending aorta Value Ref NO minor ax, (H) 5.3 cm 1.9 - 3.5 AAo AP diam, S 3.4 cm --------- A4C mid Decending aorta Value Ref Left atrium Value Ref Priscilla peak radha 0.72 m/sec --------- AP dim, ES 3.50 cm 3.00 - 4.00 ML dim, A4C 4.1 cm SI dim, A4C 5.8 cm Vol/bsa, ES, 1-p 24 ml/m^2 12 - 37 A4C Vol/bsa, ES, A/L 27 ml/m^2 16 - 34 Legend: (L) and (H) laura values outside specified reference range. Prepared and electronically signed by Guerrero Howard MD 03/03/2019 10:17
[2019-03-03] MEDS ORDERED: Regadenoson* 0.4 MG/5 ML SYRINGE ONE (12:26)
[2019-03-03] MEDS: Insulin LISPRO* 1 UNITS UNIT SUBCUT SCH (13:07)
--- NOTE | 2019-03-04 12:09 | DS ---
DISCHARGE SUMMARY: DATE OF ADMISSION: 02/28/19 DATE OF DISCHARGE: 03/03/19 ADMITTING PROVIDER: Eden Ruby NP. ATTENDING PHYSICIAN ON THE DAY OF DISCHARGE: Ian Unger MD. PRIMARY CARE PROVIDER: Susan Silver NP. OUTPATIENT MACHINE MOLDER: Dr. Sánchez. CHIEF COMPLAINT: Chest pain. PRINCIPAL DIAGNOSIS: Acute coronary artery syndrome, ruled out; uncontrolled diabetes mellitus. HISTORY OF PRESENT ILLNESS: Shun Holcomb is a 53-year-old male with past medical history of chronic smoker; COPD; poorly controlled type 2 diabetes mellitus; hypertension; hyperlipidemia; obstructive sleep apnea, not tolerant of CPAP; anxiety; depression; chronic back pain (on fentanyl patch and with dorsal column stimulator); BPH; and GERD. Please see [facility] P of [facility] Ruby for full details, but briefly, he had been complaining of intermittent chest pain for 2 to 3 months. The day prior to admission, made him go to [facility] and was referred there to [facility], where he was evaluated in the emergency room, then discharged). Per H and P, the states they wanted to admit him for a stress test, but the patient declined. He would later deny this. He followed up with Dr. Sánchez in the morning of admission, who referred him [place] [facility] [place] admission for a stress test due to the high risk symptoms he endorsed, he felt like someone was sitting on his chest. He also had shooting, stabbing pain down his right arm, which had been going on intermittently for about a month. He complained of hyperglycemia usually with 200 or above and his PCP additionally increased his metformin to 1000 mg twice a day. He has been not able to tolerate CPAP machine for his obstructive sleep apnea and throughout admission maintained he will continue smoking (1 pack per day for about 33 years ) and of note his also smokes. He ruled out for ACS. His troponins were 0.01, 0.00, 0.00. LDL was 38, HDL was 28. He was started on nitro ointment and still endorsed chest pain on hospital day #2. Beta-alfie was started at that time. His EKG showed left posterior fascicular block, borderline Q waves in V1, no ST elevations or depressions. He did have a low risk nuclear stress test on day of discharge. A small area of reversible apical hypoperfusion to represent small area of ischemia. He had an echocardiogram, which demonstrated ejection fraction of 55% to 60%, no regional wall motion abnormalities, grade 1 diastolic dysfunction, trace mitral valve regurgitation, trace aortic regurgitation. The patient was discharged with new sulfonylurea given his poor diabetes control with the A1c here noted to be 9.4 and his initial glucose was 332. He should followup with his primary care provider within 7 days. He was also recommended to call the office of Dr. Sylvester Medel to help get further endocrinology followup. He had been given a nicotine patch during the hospital. to leave the hospital after he was informed that his stress test was okay and that he would later be discharged that day. He proceeded take out his own IV dripping blood all over the floor and left out of the room before any discharge paperwork or orders could be reviewed. The patient should follow up with Dr. Sánchez. The patient also complained of a grabbing sensation in his upper epigastric area that was uncomfortable and he was noted to have a suspicion for ventral hernia with no evidence of incarceration. DISCHARGE MEDICATIONS: Include: 1. Albuterol 1 to 2 puffs inhaled q.4 hours MDI p.r.n. (new, he endorsed only Dulera inhaler previously). 2. Aspirin 81 mg daily (new). 3. Atorvastatin 40 mg daily (new). 4. Celebrex 200 mg p.o. b.i.d. (Recommend talking about this with Dr. Sánchez and primary care provider). 4. Nexium 40 mg p.o. b.i.d. 5. Fentanyl 75 mcg transdermal patch. 6. Ferrous sulfate 325 mg p.o. t.i.d. 7. Gabapentin 300 mg p.o. b.i.d. 8. Glimepiride 2 mg p.o. daily (new). 9. Lisinopril 2.5 mg daily. 10. Metformin 1000 mg p.o. t.i.d. 11. Metoprolol succinate 25 mg p.o. daily (new). 12. Dulera 2 puffs inhaled b.i.d. 13. Nicotine inhaler 10 mg inhale q.2 hours, p.r.n. (new). 14. Nicotine patch 21 mg for 24 hours (new). 15. Compazine 10 mg p.o. t.i.d. p.r.n. 16. Zantac 300 mg p.o. at bedtime. 17. Trazodone 200 mg p.o. at bedtime p.r.n. FOLLOWUP: The patient is to follow up with his primary care provider within 7 days. He is to call the office of Dr. Sylvester Medel to establish with Endocrinology. He was recommended to follow up with a general surgeon (though left before any name could be provided to him in his discharge paper work, which had been to Dr. Jax Ngo. He should also follow up with his outpatient cigarette maker, Dr. Sánchez. DISPOSITION: Home. CONDITION: Stable. DIET: Heart healthy, carbohydrate consistent. TIME SPENT: Time spent on discharge was 35 minutes. [id number]/CPS #: [id number]
== END 2019-03-03 13:40 | disposition home or self-care (01) ==
LOC: ED 12:44 → INTOOBSV 16:37 → MEDTELE 16:37
PROVIDERS: ADMIT Internal Medicine; ATTEND Internal Medicine
DX: I25.10 Atherosclerotic heart disease of native coronary artery without angina pectoris (principal); E11.65 Type 2 diabetes mellitus with hyperglycemia; R07.9 Chest pain, unspecified; Z87.891 Personal history of nicotine dependence; J44.9 Chronic obstructive pulmonary disease, unspecified; I10 Essential (primary) hypertension; E78.5 Hyperlipidemia, unspecified; G47.33 Obstructive sleep apnea (adult) (pediatric); N40.0 Benign prostatic hyperplasia without lower urinary tract symptoms; K21.9 Gastro-esophageal reflux disease without esophagitis; Z79.82 Long term (current) use of aspirin; Z79.899 Other long term (current) drug therapy; F17.210 Nicotine dependence, cigarettes, uncomplicated; E66.9 Obesity, unspecified; K43.9 Ventral hernia without obstruction or gangrene
CPT/HCPCS: 36415; 71045; 78452; 80048; 80053; 80061; 82947; 83036; 83880; 84252; 84484; 85025; 85610; 93005; 93017; 93306; 94640; 94762; 96372; 96374; 99284; A9270-GY; A9502; G0378; J1644; J1885; J2785

== ENCOUNTER 2019-09-21 11:26 | Emergency (ER) | payer OTHER ==
[2019-09-21 12:20] VITALS: BP 139/71
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
== END 2019-09-21 13:05 | disposition home or self-care (01) ==
LOC: UCCORT 11:26
DX: L03.116 Cellulitis of left lower limb (principal); L03.115 Cellulitis of right lower limb; E11.9 Type 2 diabetes mellitus without complications; I10 Essential (primary) hypertension; K21.9 Gastro-esophageal reflux disease without esophagitis; E78.5 Hyperlipidemia, unspecified; F17.210 Nicotine dependence, cigarettes, uncomplicated; Z79.899 Other long term (current) drug therapy; Z79.4 Long term (current) use of insulin; Z91.013 Allergy to seafood
CPT/HCPCS: 99212; G0463